=== PATIENT | male | born 1995 | race Caucasian/White ===

== ENCOUNTER 2017-09-28 09:01 | Emergency (ER) | payer SELFPAY ==
[~2017-09-28] VITALS: Ht 170.2 cm; Wt 51.9 kg
[~2017-09-28 09:01] MED LIST: FIORICET,ESG1 TABLET PO
[2017-09-28 09:45] LABS: HEMATOCRIT 43.5 % (38.0-50.0); HEMOGLOBIN 15.6 G/DL (12.5-16.6); MCH 31.8 PG (29.0-34.0); MCHC 35.9 G/DL (30.0-36.0); MCV 88.6 FL (86-99); PLATELET COUNT 309 K/uL (156-360); RBC DIS.WIDTH-CV 11.4 % (11.8-14.6); RBC DIS.WIDTH-SD 36.9 % (39-53); RED BLOOD COUNT 4.91 M/uL (4.00-5.50); WHITE BLOOD COUNT 7.9 K/uL (4.1-10.2)
[2017-09-28 09:59] LABS: ALBUMIN 4.6 g/dL (3.2-4.8); CHLORIDE 100 mEq/L (99-109); POTASSIUM 4.3 mEq/L (3.7-5.4); SODIUM 139 mEq/L (136-147)
[2017-09-28 10:01] LABS: GLUCOSE 66 mg/dL (70-99); TOTAL PROTEIN 7.5 g/dL (6.4-8.3)
[2017-09-28 10:03] LABS: TOTAL BILIRUBIN 0.9 mg/dL (0.0-1.0)
[2017-09-28 10:05] LABS: ALKALINE PHOSPHATASE 69 IU/L (3-129); CREATININE 0.9 mg/dL (0.6-1.3); GFR ESTIMATE (CALCULATED) > 59 mL/min/ (58.99-99999)
[2017-09-28 10:06] LABS: AST (GOT) 33 IU/L (2-34); UREA NITROGEN (BUN) 16 mg/dL (9-23)
[2017-09-28 10:08] LABS: ALT (GPT) 27 IU/L (3-49); LIPASE 14 U/L (1.0-51.0)
[2017-09-28 10:39] LABS: APPEARANCE CLEAR ((CLEAR)); BILIRUBIN NEGATIVE; BLOOD NEGATIVE; COLOR YELLOW ((YELLOW)); GLUCOSE (STRIP) NEGATIVE; KETONES 5; LEUKOCYTES NEGATIVE; NITRITE NEGATIVE; PROTEIN (STRIP) NEGATIVE; SPECIFIC GRAVITY 1.015 (1.000-1.030); UCUL ADDED? NO
[2017-09-28 12:47] LABS: THYROTROPIN (TSH) 0.42 MIU/L (0.4-5.5)
[2017-09-28] MEDS ORDERED: PREDNISONE20 MG PO (13:02)
[2017-09-28 13:11] LABS: BASOPHIL (%) 2.3 % (0-1); BASOPHIL COUNT 0.2 K/uL (0-0.1); EOSINOPHIL (%) 12.5 % (0-5); IMMATURE GRANULOCYTE (%) 0.4 % (0.0-0.7); LYMPHOCYTE (%) 32.1 % (15-42); LYMPHOCYTE COUNT 2.6 K/uL (1.0-2.8); MONOCYTE (%) 7.9 % (3-12); MONOCYTE COUNT 0.6 K/uL (0-0.8); NEUTROPHIL (%) 44.8 % (45-76); NEUTROPHIL COUNT 3.6 K/uL (1.8-6.4)
[2017-09-28 13:24] VITALS: BP 151/92
== END 2017-09-28 13:25 | disposition home or self-care (01) ==
LOC: EME 09:01
DX: R59.0 Localized enlarged lymph nodes (principal); R63.4 Abnormal weight loss; J03.90 Acute tonsillitis, unspecified; R42 Dizziness and giddiness; Z80.1 Family history of malignant neoplasm of trachea, bronchus and lung; Z87.891 Personal history of nicotine dependence; Z68.1 Body mass index [BMI] 19.9 or less, adult
CPT/HCPCS: 70491; 80053; 81003; 83690; 84439; 84443; 85025; 85027; 87651 90; 99281; 99284; J0561; J7030